=== PATIENT | female | born 1975 | race Caucasian/White ===

== ENCOUNTER → 2016-10-11 | Outpatient (CLI) | payer OTHER ==
[2016-10-11 13:17] LABS: BASOPHIL % 0.3 % (0-2); PLATELET COUNT 257 x10^3mcL (130-400); RED CELL DISTRIBUTION WIDTH 12.8 % (11.5-14.5)
[2016-10-11 13:39] LABS: ALKALINE PHOSPHATASE 59 U/L (46-116); ALT/SGPT 18 U/L (14-59); AST/SGOT 21 U/L (15-37); BILIRUBIN TOTAL 0.55 mg/dL (0.20-1.00); CALCIUM 8.7 mg/dL (8.5-10.1); CARBON DIOXIDE 25.9 mmol/L (21-32); CHLORIDE SERUM 105 mmol/L (98-107); CHOLESTEROL 168 mg/dL (<200); CREATININE SERUM 0.8 mg/dL (0.6-1.0); GFR1 > 60 mL/min; GLUCOSE SERUM 80 mg/dL (74-106); POTASSIUM SERUM 3.7 mmol/L (3.5-5.1); SODIUM SERUM 140 mmol/L (136-145); TOTAL PROTEIN, SERUM 7.4 g/dL (6.4-8.2); TRIGLYCERIDES 44 mg/dL (<150)
[2016-10-11 13:41] LABS: CHOLESTEROL/HDL RATIO 2.3; HDL CHOLESTEROL 73 mg/dL (40-60)
== END | disposition home or self-care (01) ==
LOC: LB 12:31
PROVIDERS: Family Medicine
DX: E28.8 Other ovarian dysfunction (principal); Z13.220 Encounter for screening for lipoid disorders; Z13.1 Encounter for screening for diabetes mellitus; Z13.0 Encounter for screening for diseases of the blood and blood-forming organs and certain disorders involving the immune mechanism
CPT/HCPCS: 82670; 84402; 84403

== ENCOUNTER → 2017-12-02 | Outpatient (CLI) | payer OTHER ==
[2017-12-02 14:10] LABS: BASOPHIL % 0.9 % (0-2); PLATELET COUNT 262 x10^3mcL (130-400); RED CELL DISTRIBUTION WIDTH 13.1 % (11.5-14.5)
== END | disposition home or self-care (01) ==
LOC: CT 12:49
PROVIDERS: Allergy & Immunology
PROC: B922ZZZ Computerized Tomography (CT Scan) of Paranasal Sinuses (ICD-10-PCS; principal; 2017-12-02)
DX: J32.9 Chronic sinusitis, unspecified (principal)
CPT/HCPCS: 82784; 82785; 83516; 86255